=== PATIENT | male | born 1995 | race Caucasian/White ===

== ENCOUNTER 2018-11-01 03:36 | Emergency (ER) | payer OTHER, SELFPAY ==
[2018-11-01 03:37] VITALS: BP 146/66; PULSE 107; RESP 18; TEMP 37.3; O2SAT 99; BMI 26.8
--- NOTE | 2018-11-01 03:45 | CT_ITS ---
STUDY: CT ABDOMEN AND PELVIS WITH CONTRAST REASON FOR EXAM: Male, 23 years old. Left lower quadrant and back pain RADIATION DOSAGE (If Supplied By Facility): CTDIvol = ( 13.40 ) mGy, DLP = ( 903.87 ) mGycm TECHNIQUE: Transaxial images were obtained from the dome of the diaphragm to the symphysis pubis without oral contrast. 100ml IV Isovue 370 was administered. Sagittal and coronal images were reconstructed. Individualized dose optimization techniques were used for this CT. COMPARISON: None. FINDINGS: The visualized lung bases are unremarkable. The visualized portions of the heart are within normal limits. Normal liver. Normal gallbladder and extrahepatic biliary system. Normal spleen. Normal pancreas. Normal bilateral adrenal glands. Normal right kidney. Normal left kidney. Normal visualized stomach. Normal small intestine. Normal colon. The appendix is visualized and appears normal. Normal abdominal aorta. Normal inferior vena cava. Normal retroperitoneum. There are bilateral hydroceles. Evaluation of the scrotal sac and testes is nondiagnostic by CT. There is stranding and likely fluid within the left inguinal canal and superior to the left testis.. There is small amount of free fluid within the pelvis. Normal abdominal wall. Normal osseous structures. There is mild bladder wall thickening. CT/Abdomen/Pelvis W IV Cont ONLY IMPRESSION: Bilateral hydroceles, small amount of fluid and stranding superior to left testis this could represent patient's history of epididymitis. CT is nondiagnostic to evaluate the testes and scrotal sac. Scrotal Doppler ultrasound should be considered Small amount of fluid within the left inguinal canal with stranding which may be related history of inflammatory process, epididymitis. There is also small amount of free fluid in the pelvis which may represent patent small inguinal hernia with fluid contiguous from the pelvis to the scrotum. Free fluid in the pelvis is considered abnormal in a male, infectious or posttraumatic etiology including bowel injury cannot be excluded. This should be correlated with clinical history and physical exam. Mild bladder wall thickening which may be secondary to incomplete distention versus cystitis Electronically Signed: Aneudy Bee, at 5:35 EDT Tel , Service support ,
--- NOTE | 2018-11-01 03:46 | ED.DCSUM_ITS ---
History of Present Illness Chief Complaint: General Illness Informant: Patient Onset: Days Context: Gradual Onset Timing: Intermittent Current Severity: Moderate Maximum Severity: Moderate Narrative: The patient presents to the emergency department with fevers, chills, malaise, and abdominal pain. Patient states his been having intermittent pain testicle for a few months. He states that he saw his primary care on Friday. He was diagnosed with epididymitis and he was started on Bactrim. He states the pain is actually getting better. Has been taking it now for 5 days. He states that he is been having some nausea and some belching. Over the past 24 hours, he is had worsening pain mostly in his left lower quadrant. He is also admitting to chills and sweats. He said some mild back pain. He denies any weight loss. He denies any night sweats. Patient is otherwise healthy. He is on no other daily medications. Prior similar symptoms: No Recent Illness/Hospitalization: No Past Medical History - Allergies and Home Meds Allergies/Adverse Reactions: Allergies No Known Allergies Allergy (Verified 11/01/18 03:41) Primary Care Physician: Adrián Guerrero DO [Primary Care Provider] - Prior records reviewed: Yes Past Medical History: None Surgical History: no surgical history Smoking Status: Former smoker Review of Systems General: Reports: Chills, Fever. Denies: Sweats Eyes: Denies: Visual changes - bilaterally, Diplopia ENT: Denies: Rhinorrhea, Sore throat Cardiovascular: Denies: Chest pain, Palpitations Respiratory: Denies: Dyspnea, Cough, Dyspnea on exertion Gastrointestinal: Reports: Nausea, Vomiting. Denies: Abdominal pain, Diarrhea, Melena, Hematochezia Genitourinary: Reports: Dysuria. Denies: Hematuria, Frequency Musculoskeletal: Denies: Back pain, Extremity Pain Skin: Denies: Rash, Wounds Neurological: Denies: Headache, Weakness, Numbness Psych: Denies: Depression Endocrine: Denies: Polyuria Physical Exam Vital Signs/Narrative: Vital Signs Temp Pulse Resp BP Pulse Ox 11/01/18 03:37 99.2 F H 107 H 18 146/66 H 99 Inital Vital Signs reviewed: Yes General: Well nourished, Well developed, No Acute Distress Head: Normocephalic, Atraumatic Eyes: Perrl, EOMI ENT: Moist mucous membranes, No rhinorrhea Neck: Supple, Nontender Cardiovascular: Regular rate, Regular rhythm, No murmurs Respiratory: No distress, CTA bilaterally, Chest nontender Abdomen: Soft, Nontender, Nondistended, Normal bowel sounds Back: Nontender, Normal Inspection Extremities: Nontender, No edema Skin: Normal color, No rash Neurological: Alert, Oriented x3, Cranial nerves II-XII grossly intact, Normal Strength, Normal Sensation Psychological: Normal affect, Normal Mood Diagnostic/Tx/Re-eval Clinical Impression(s) from Imaging Studies Abdomen/Pelvis CT 11/01/18 03:45 IMPRESSION: Bilateral hydroceles, small amount of fluid and stranding superior to left testis this could represent patient's history of epididymitis. CT is nondiagnostic to evaluate the testes and scrotal sac. Scrotal Doppler ultrasound should be considered Small amount of fluid within the left inguinal canal with stranding which may be related history of inflammatory process, epididymitis. There is also small amount of free fluid in the pelvis which may represent patent small inguinal hernia with fluid contiguous from the pelvis to the scrotum. Free fluid in the pelvis is considered abnormal in a male, infectious or posttraumatic etiology including bowel injury cannot be excluded. This should be correlated with clinical history and physical exam. Mild bladder wall thickening which may be secondary to incomplete distention versus cystitis Electronically Signed: Aneudy Bee, at 5:35 EDT Tel , Service support , Abnormal Lab Results 11/01/18 11/01/18 11/01/18 03:50 03:50 04:00 WBC 6.0 RBC 5.59 Hgb 17.1 H Hct 48.0 MCV 85.9 MCH 30.6 MCHC 35.6 RDW Std Deviation 35.7 RDW Coeff of [place]al[place] 11.3 L Plt Count 131 L MPV 9.3 Immature Gran % (Auto) 0.200 Neut % (Auto) 72.9 H Lymph % (Auto) 12.8 L [place] % (Auto) 10.1 H Eos % (Auto) 3.5 Baso % (Auto) 0.5 Absolute Neuts (auto) 4.3 Absolute Lymphs (auto) 0.76 L Nucleated RBC % 0 Sodium 140 Potassium 3.6 Chloride 105 Carbon Dioxide 25.0 Anion Gap 10 BUN 10 Creatinine 1.19 Estim Creat Clear Calc 104.58 Est GFR (MDRD) Af Amer 99 Est GFR (MDRD) Non-Af 82 BUN/Creatinine Ratio 8.4 L Glucose 91 Calcium 8.8 Total Bilirubin 0.50 AST 15 ALT 20 Alkaline Phosphatase 64 Total Protein 7.8 Albumin 4.3 Globulin 3.5 Albumin/Globulin Ratio 1.2 Urine Color Yellow Urine Clarity Sl. Cloudy Urine pH 6.5 Ur Specific [place] 1.010 Urine Protein 15 H Urine Glucose (UA) Normal Urine Ketones 5 H Urine Occult Blood Negative Urine Nitrite Negative Urine Bilirubin Negative Urine Urobilinogen Normal Ur Leukocyte Esterase Negative Urine RBC 0 SEEN Urine WBC 0 SEEN Ur Squamous Epith Cells 0 SEEN Amorphous Sediment 1+ Urine Bacteria 0 SEEN Urine Mucus 0 SEEN - Medical Decision Making The patient presents to the emergency department with lower abdominal pain, chills, and sweats. His symptoms do see primarily infectious. He has normal cremasteric. He has mild tenderness over the left testicle, but it is not hard and it does not appear to have evidence of torsion. He has had this pain for about 6 days and has been feeling improved, but now he had pain in his lower abdomen. IV was established. Screening labs are obtained. Patient does not have a significant leukocytosis. Patient underwent CT which showed some reactive fluid in the lower pelvis that looks like it communicates with the scrotum. My suspicion is that this is likely epididymitis. The patient has been on Bactrim, but based on his age and risk factors, I do not know if this is significantly treating it. I am going to obtain an ultrasound to rule out dangerous process. I do feel that this shows the epididymitis and no evidence of torsion but I am going to change the patient's antibiotics to Cipro. He is comfortable with this plan of care. Ultrasound is currently pending. Impression 1. Left testicular pain 2. Epididymitis ED Disposition - Plan for ED Patient: Instructions: Epididymitis Prescriptions: Ciprofloxacin [Cipro] 500 mg PO BID #20 tab Prescription Printed Doxycycline 100 mg PO BID #20 cap Prescription Printed Referrals: Adrián Guerrero DO [Primary Care Provider] - Jared Coffman MD [STAFF PHYSICIAN] - Additional Instructions: Okay to stop the Bactrim
[2018-11-01] MEDS: Ketorolac 15 MG/ML Vial IV (04:03)
[2018-11-01] MEDS: 0.9% Normal Saline 1,000 ML 1000 ML IV (04:03)
[2018-11-01] MEDS: Ondansetron 4 MG/2 ML Vial IV (04:04)
[2018-11-01 04:05] LABS: Bacteria 0 SEEN /hpf (None Seen); Mucous, Urine 0 SEEN /hpf (<or=2+); Red Blood Cells-Urine 0 SEEN /hpf (0-5); Squamous Epithelial Cells - UA 0 SEEN /hpf (0-5); White Blood Cells 0 SEEN /hpf (0-5)
[2018-11-01 04:07] LABS: Color, Urine Yellow (Yellow); Glucose, Dipstick Normal (Normal); Ketone-Dipstick 5 mg/dl (Negative); Leukocyte Esterase-Dipstick Negative /ul (Negative); Nitrite-Dipstick Negative (Negative); Occult Blood-Urine Negative /ul (Negative); Protein-Dipstick 15 mg/dl (Negative); Urine Bilirubin Dipstick Negative (Negative); Urine Clarity Sl. Cloudy (Clear); Urine Urobilinogen Normal (Normal); Urine pH 6.5 (5.0 - 8.0)
[2018-11-01 04:14] LABS: ALB/GLOB Ratio 1.2 RATIO (0.9-2.4); AST(SGOT) 15 U/L (15-37); Absolute Lymphocyte Count 0.76 X10^3/uL (0.83-4.51); Absolute Neutrophil Count 4.3 X10^3/uL (2.0-7.7); Alanine Aminotransfer ALT/SGPT 20 U/L (16-61); Albumin, Serum 4.3 g/dL (3.2-5.0); Alkaline Phosphatase 64 U/L (45-117); Anion Gap 10 (5-15); BUN 10 mg/dL (7-18); BUN/Creat Ratio 8.4 RATIO (10-20); Basophil# 0.03 X10^3/uL; Basophil% 0.5 % (0-1); Calcium,Total 8.8 mg/dL (8.5-10.1); Chloride 105 mmol/L (98-107); Creatinine, Serum 1.19 mg/dL (0.70-1.30); EST Glomerular Filtration Rate 82 mL/min (>60); Eosinophil# 0.21 X10^3/uL; Eosinophils% 3.5 % (0-5); Est Glom Filt Rate - Afr Amer 99 mL/min (>60); Estimated Creatinine Clearance 104.58 ml/min; Globulin 3.5 g/dL (2.2-4.2); Glucose 91 mg/dL (74-106); Hemoglobin 17.1 g/dL (13.0-16.5); Lymphocyte # 0.76 X10^3/ul (4.0); Lymphocyte % 12.8 % (19-41); Mean Corp Hgb Conc 35.6 g/dL (32-36); Mean Corpuscular Hgb 30.6 pg (27.0-32.0); Mean Corpuscular Volume 85.9 fL (80-94); Mean Platelet Vol. 9.3 fl (6.2-12.0); Monocyte% 10.1 % (0-10); NRBC Flagged by Analyzer 0 % (0-5); Neutrophil # 4.34 X10^3/uL (2.7-7.7); Neutrophil % 72.9 % (47-70); Platelet Count 131 K/mm3 (150-450); Potassium 3.6 mmol/L (3.5-5.1); Protein, Total 7.8 g/dL (6.4-8.2); RBC Distribution Width CV 11.3 % (11.6-14.6); RBC Distribution Width SD 35.7 fl (35.1-43.9); Red Blood Count 5.59 M/mm3 (4.6-6.2); Sodium Level 140 mmol/L (136-145)
[2018-11-01 04:17] LABS: Amorphous Sediment 1+
--- NOTE | 2018-11-01 05:50 | US_ITS ---
STUDY: SCROTUM ULTRASOUND REASON FOR EXAM: Male, 23 years old. Left-sided testicular pain. TECHNIQUE: Ultrasound evaluation of the scrotum was performed with color Doppler and static mosley-scale imaging. COMPARISON: None. FINDINGS: RIGHT TESTICLE INTRATESTICULAR: There is a normal size of the right testicle. The right testicle measures 3.5 x 4.0 x 2.5 cm. There is a homogenous echotexture. There is normal arterial and normal venous vascularity. There is no demonstrated right testicular mass or cyst. EXTRATESTICULAR: The epididymis is normal in size. The epididymis head measures 5.3 x 6.4 x 11 mm. There is normal vascularity of the epididymis. There is no demonstrated epididymal cystic structure. There is no demonstrated hydrocele. There is no demonstrated varicocele. There is no demonstrated extratesticular mass or cyst. LEFT TESTICLE INTRATESTICULAR: There is a normal size of the left testicle. The left testicle measures 3.1 x 5.1 x 2.5 cm. There is a homogenous echotexture. There is normal arterial and normal venous vascularity. There is no demonstrated left testicular mass or cyst. EXTRATESTICULAR: The epididymis is normal in size. The epididymis head measures 2.1 x 0.9 x 1.5 cm. There is normal vascularity of the epididymis. There is a well-defined cystic structure within the epididymis, without internal echoes, consistent with an epididymal cyst. There is no demonstrated hydrocele. There is no demonstrated varicocele. There is no demonstrated extratesticular mass or cyst. US/Testicular with Arterial Flow IMPRESSION: Normal sonographic appearance of both testes. Electronically Signed: Uyen Mejia MD at 8:20 EDT , Service support ,
[2018-11-01 07:30] VITALS: BP 109/62; PULSE 60; RESP 15; O2SAT 99
[2018-11-01 09:14] VITALS: BP 110/67; PULSE 64; RESP 16; O2SAT 100
== END 2018-11-01 09:15 | disposition home or self-care (01) ==
LOC: ED 03:59
PROVIDERS: Emergency Provider Emergency Medicine; Family Provider Pediatrics; PCP Pediatrics
DX: N50.812 Left testicular pain (principal); N45.1 Epididymitis; N43.3 Hydrocele, unspecified; Z87.891 Personal history of nicotine dependence
CPT/HCPCS: 74177; 76870; 80053; 81001; 85025; 93976; 96361; 96374; 96375; 99283; Q9967; A4216; J2405

== ENCOUNTER 2018-11-22 21:04 | Emergency (ER) | payer OTHER, SELFPAY ==
[2018-11-22 21:05] VITALS: BP 133/81; PULSE 118; RESP 16; TEMP 36.6; O2SAT 99; BMI 26.2
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
[2018-11-22] MEDS: HYDROcodone Bitartrate/Apap 5/325 Tablet PO (21:24)
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
[2018-11-22] MEDS: Smz/Tmp Ds Tablet 1 TABLET PO (22:59)
[2018-11-22] MEDS: Cephalexin 250 MG Capsule 500 MG PO (22:59)
== END 2018-11-22 23:03 | disposition home or self-care (01) ==
PROVIDERS: Emergency Provider Emergency Medicine; Family Provider Pediatrics; PCP Pediatrics
DX: M79.5 Residual foreign body in soft tissue (principal); W34.00XA Accidental discharge from unspecified firearms or gun, initial encounter; F17.200 Nicotine dependence, unspecified, uncomplicated
CPT/HCPCS: 73130; 99284

== ENCOUNTER 2018-11-23 01:46 | Emergency (ER) | payer OTHER, SELFPAY ==
[2018-11-22 21:05] VITALS: BMI 26.2
[2018-11-23 01:47] VITALS: BP 137/115; PULSE 90; RESP 16; TEMP 37.3; O2SAT 100; BMI 25.7
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
[2018-11-23] MEDS: predniSONE 20 MG Tablet 60 MG PO (02:04)
[2018-11-23] MEDS: Famotidine 20 MG Tablet PO (02:04)
[2018-11-23] MEDS: Ondansetron ODT 4 MG Tablet 8 MG PO (03:04)
--- NOTE | 2018-11-23 03:04 | ED.RN ---
CALLED INTO ROOM, PT VOMITING IN TRASH CAN. ORDER OBTAINED FROM DR. MENDOZA FOR ZOFRAN WHICH WAS GIVEN. DR. MENDOZA AT BEDSIDE TO REEVALUATE PT.
[2018-11-23 03:27] VITALS: BP 126/58; PULSE 104; RESP 16; O2SAT 99
== END 2018-11-23 03:31 | disposition home or self-care (01) ==
PROVIDERS: Emergency Provider Emergency Medicine; Family Provider Pediatrics; PCP Pediatrics
DX: T78.40XA Allergy, unspecified, initial encounter (principal); T78.49XA Other allergy, initial encounter; T36.1X5A Adverse effect of cephalosporins and other beta-lactam antibiotics, initial encounter; T36.8X5A Adverse effect of other systemic antibiotics, initial encounter; Y92.9 Unspecified place or not applicable; F17.200 Nicotine dependence, unspecified, uncomplicated
CPT/HCPCS: 99283

== ENCOUNTER 2019-10-25 12:05 | Emergency (ER) | payer OTHER, SELFPAY ==
[2019-10-25 12:06] VITALS: BP 138/108; PULSE 87; RESP 18; TEMP 36.6; O2SAT 98; BMI 25.8
--- NOTE | 2019-10-25 12:40 | CT_ITS ---
STUDY: CT ABDOMEN AND PELVIS WITHOUT CONTRAST REASON FOR EXAM: Male, 24 years old. LLQ PAIN X 5 DAYS AND DIARRHEA. No surgical or medical hx RADIATION DOSAGE (If Supplied By Facility): CTDIvol = ( 13.29 ) mGy, DLP = ( 465.75 ) mGycm TECHNIQUE: Transaxial images were obtained from the dome of the diaphragm to the symphysis pubis without oral contrast, and without intravenous contrast. Sagittal and coronal images were reconstructed. Individualized dose optimization techniques were used for this CT. COMPARISON: Comparison is made with prior study dated 11/01/2018. FINDINGS: The visualized lung bases are unremarkable. The visualized portions of the heart are within normal limits. There is evidence of a periportal edematous changes within the liver. There is a small amount of perihepatic fluid. Hepatitis should be ruled out. Normal gallbladder and extrahepatic biliary system. Normal spleen. Normal pancreas. Normal bilateral adrenal glands. Normal right kidney. Normal left kidney. There is a small hiatal hernia. Normal small intestine. Normal colon. The appendix is visualized and appears normal. Normal abdominal aorta. Normal inferior vena cava. Normal retroperitoneum. Mild degree of diffuse bladder wall thickening. Small left hydrocele. Small amount of free fluid is seen in the pelvis. Normal abdominal wall. Normal osseous structures. CT/Abdomen/Pelvis W IV Cont ONLY IMPRESSION: There is evidence of periportal edema in the liver with a small amount of free fluid seen in the pelvis. Small amount of perihepatic fluid. Mild degree of diffuse bladder wall thickening. Electronically Signed: Hang Brown, at 14:19 EDT , Service support ,
--- NOTE | 2019-10-25 12:41 | ED.DCSUM_ITS ---
History of Present Illness Chief Complaint: Abd Pain Informant: Patient, Family - Abdominal Pain/Flank Pain Onset: Days - 5 Context: Gradual Onset - about 10 min after eating breakfast Timing: Continuous Quality: Aching - and bloating/swelling in left abd Location: - - left abd Current Severity: Moderate Maximum Severity: Moderate Worsened by: Nothing Relieved by: - - belching, passing flatus - Nausea/Vomiting/Emesis GI Symptom: Nausea. Negative for: Vomiting - Diarrhea/Melena/Hematochezia GI Symptom: Negative for: Diarrhea, Melena, Hematochezia Associated Symptoms: Negative for: Dysuria, Frequency, Hematuria, Urgency Narrative: Patient states he generally eats the same thing every morning that does not bother him, however on the day of the onset of this, he also had a banana which is caused similar symptoms in the past. He thought he would try it again, but it caused left-sided abdominal pain and swelling. The symptoms have persisted f or multiple days, and 1-2 days ago he developed testicular pain worse on the left. He was evaluated by Dr. Smith with surgery [facility] in the past and told that he may have an indirect left inguinal hernia. He has never developed a bulge/mass, but was told that if he developed any issues to come back for reevaluation. He has developed no bulge or mass in this past week either. Denies any history of or risk of gonorrhea or chlamydia, but states he has had epididymitis once in the past. Past Medical History - Allergies and Home Meds Allergies/Adverse Reactions: Allergies cephalexin Allergy (Verified 10/25/19 12:06) Swelling ciprofloxacin Allergy (Verified 10/25/19 12:06) Rash doxycycline Allergy (Verified 10/25/19 12:06) Rash sulfamethoxazole [From Bactrim] Allergy (Verified 10/25/19 12:06) Swelling trimethoprim [From Bactrim] Allergy (Verified 10/25/19 12:06) Swelling Primary Care Physician: Rommel Acosta MD [Primary Care Provider] - Past Medical History: None Surgical History: no surgical history Lives: With Family Smoking Status: Current every day smoker Review of Systems General: Denies: Chills, Fever, Sweats Eyes: Denies: Visual changes - bilaterally, Diplopia ENT: Denies: Rhinorrhea, Sore throat Cardiovascular: Denies: Chest pain, Palpitations Respiratory: Denies: Dyspnea, Cough, Dyspnea on exertion Gastrointestinal: Reports: Abdominal pain, Nausea. Denies: Vomiting, Diarrhea, Melena, Hematochezia Genitourinary: Reports: - - Testicular pain. Denies: Dysuria, Hematuria, Frequency Musculoskeletal: Denies: Back pain, Swelling, Extremity Pain Skin: Denies: Rash, Wounds Neurological: Denies: Headache, Weakness, Numbness Physical Exam Vital Signs/Narrative: Vital Signs Temp Pulse Resp BP Pulse Ox 10/25/19 12:06 98 F 87 18 138/108 H 98 Inital Vital Signs reviewed: Yes General: Well nourished, Well developed, No Acute Distress Head: Normocephalic, Atraumatic Eyes: Perrl, EOMI ENT: Moist mucous membranes, No rhinorrhea Neck: Supple, Nontender Cardiovascular: Regular rate, Regular rhythm, No murmurs. Negative for: Tachycardia Respiratory: No distress, CTA bilaterally, Chest nontender Abdomen: Soft, Nondistended - No objective swelling noted., Normal bowel sounds, No masses, Tender - Left lower quadrant with voluntary guarding. Left upper quadrant without. Otherwise nontender.. Negative for: Rebound tenderness : - - Cremasterics intact bilaterally. Both epididymis tender, worse on the left, no testicle tenderness proper. No blue dot sign. No scrotal mass palpable. Skin and scrotum and penis normal. Patient examined while standing, no mass/hernia palpable bilateral inguinal. Back: Nontender, Normal Inspection. Negative for: CVA tenderness Extremities: Nontender, No edema Skin: Normal color, No rash, No Trauma Neurological: Alert, Oriented x3, Cranial nerves II-XII grossly intact, Normal Strength, Normal Sensation, Normal Gait Psychological: Normal affect, Normal Mood Diagnostic/Tx/Re-eval Impressions Abdomen/Pelvis CT 10/25/19 12:40 IMPRESSION: There is evidence of periportal edema in the liver with a small amount of free fluid seen in the pelvis. Small amount of perihepatic fluid. Mild degree of diffuse bladder wall thickening. Electronically Signed: Hang Brown, at 14:19 EDT , Service support , 10/25/19 12:40 Abdomen/Pelvis W IV Cont ONLY [CT] Stat Laboratory Results 10/25/19 10/25/19 10/25/19 13:00 13:00 13:00 WBC 7.3 RBC 5.11 Hgb 15.8 Hct 45.9 MCV 89.8 MCH 30.9 MCHC 34.4 RDW Std Deviation 37.7 RDW Coeff of Rosalinda 11.6 Plt Count 169 MPV 9.5 Immature Gran % (Auto) 0.300 Neut % (Auto) 57.6 Lymph % (Auto) 31.6 [place] % (Auto) 6.0 Eos % (Auto) 4.0 Baso % (Auto) 0.5 Absolute Neuts (auto) 4.2 Absolute Lymphs (auto) 2.30 Nucleated RBC % 0 Sodium 139 Potassium 4.0 Chloride 109 H Carbon Dioxide 27.0 Anion Gap 3 L BUN 11 Creatinine 0.96 Estim Creat Clear Calc 124.62 Est GFR (MDRD) Af Amer 126 Est GFR (MDRD) Non-Af 104 BUN/Creatinine Ratio 11.4 Glucose 89 Calcium 8.8 Total Bilirubin 0.40 AST 13 L ALT 20 Alkaline Phosphatase 69 Total Protein 7.3 Albumin 4.1 Globulin 3.2 Albumin/Globulin Ratio 1.3 Lipase 217 Urine Color Yellow Urine Clarity Clear Urine pH 7.0 Ur Specific [place] 1.010 Urine Protein Negative Urine Glucose (UA) Normal Urine Ketones Negative Urine Occult Blood Negative Urine Nitrite Negative Urine Bilirubin Negative Urine Urobilinogen Normal Ur Leukocyte Esterase Negative Urine RBC 0 SEEN Urine WBC 0 SEEN Ur Squamous Epith Cells 0 SEEN Urine Bacteria 0 SEEN Urine Mucus 0 SEEN - Medical Decision Making Patient's abdominal pain is much improved after Toradol, Bentyl, simethicone. I suspect this is functional abdominal pain, it may have been caused by the banana that he ate for unknown reasons. The CT results do not indicate the reason for his pain, and was primarily obtained to rule out diverticulitis given his intense left lower quadrant tenderness, which he does not show. It shows nonspecific periportal edema and a mild amount of free fluid, this may be due to intestinal inflammatory problem that is more likely to be causing his pain. His liver enzymes are all normal. His urinalysis is normal, but I am going to place him on 7 days of cephalexin (see below) for probable epididymitis, and also Bentyl to use as needed. I recommend close outpatient follow-up with his PCP and they are comfortable with that plan. The patient indicates that avocados have caused this issue in the past as well. I am not sure the next type of test that would indicate the problem that this patient is having in response to these foods. The patient happens to be allergic to every antibiotic that we used to treat epididymitis on an outpatient basis. However on further discussion with the patient and family and exploration of his chart, it seems that he does not have any true allergies to cephalexin that has been proven. He actually saw an italian tutor and had testing, and was told if he needed to be placed on antibiotics, that the cephalosporin family would be safe as would penicillins. I am less suspicious of gonorrhea or chlamydia as the patient's cause of epididymitis, and I am trying to cover E. coli. It appears that during his last ER visit last year, he was on both Bactrim and cephalexin when he developed an allergic reaction, so I think both of these antibiotics were probably placed into the system, as the patient was unaware of being allergic to cephalexin. I think as the ED physician did last year, that the Bactrim was more likely the cause of that reaction, and he is amenable to trying cephalexin. If he develops an allergic reaction, he understands to discontinue it and return to the ER if needed. ED Disposition - Plan for ED Patient: Disposition: Home or Assisted Living Diagnosis: Epididymitis, Diffuse abdominal pain Instructions: ED Epididymitis, ED Unknown Causes of Abdominal Pain Male Prescriptions: Dicyclomine HCl [Bentyl] 20 mg PO Q6H PRN #20 capsule PRN Reason: abdominal pain Cephalexin [Keflex] 500 mg PO TID 7 Days #21 capsule Referrals: Rommel Acosta MD [Primary Care Provider] - 1-2 Weeks Additional Instructions: Also may use simethicone 80 mg every 6-8 hours as needed for abdominal bloating/discomfort.
[2019-10-25] MEDS: 0.9% Normal Saline 1,000 ML 1000 ML IV (13:02)
[2019-10-25] MEDS: Ondansetron 4 MG/2 ML Vial IV (13:02)
[2019-10-25] MEDS: Ketorolac 30 MG/ML Syringe IV (13:03)
[2019-10-25] MEDS: Dicyclomine 10 MG Capsule 20 MG PO (13:03)
[2019-10-25 13:19] LABS: Bacteria 0 SEEN /hpf (None Seen); Mucous, Urine 0 SEEN /hpf (<or=2+); Red Blood Cells-Urine 0 SEEN /hpf (0-5); Squamous Epithelial Cells - UA 0 SEEN /hpf (0-5); White Blood Cells 0 SEEN /hpf (0-5)
[2019-10-25 13:21] LABS: Color, Urine Yellow (Yellow); Glucose, Dipstick Normal (Normal); Ketone-Dipstick Negative (Negative); Leukocyte Esterase-Dipstick Negative /ul (Negative); Nitrite-Dipstick Negative (Negative); Occult Blood-Urine Negative /ul (Negative); Protein-Dipstick Negative (Negative); Urine Bilirubin Dipstick Negative (Negative); Urine Clarity Clear (Clear); Urine Urobilinogen Normal (Normal)
[2019-10-25 13:46] LABS: ALB/GLOB Ratio 1.3 RATIO (0.9-2.4); AST(SGOT) 13 U/L (15-37); Alanine Aminotransfer ALT/SGPT 20 U/L (16-61); Albumin, Serum 4.1 g/dL (3.2-5.0); Alkaline Phosphatase 69 U/L (45-117); Anion Gap 3 (5-15); BUN 11 mg/dL (7-18); BUN/Creat Ratio 11.4 RATIO (10-20); Calcium,Total 8.8 mg/dL (8.5-10.1); Chloride 109 mmol/L (98-107); Creatinine, Serum 0.96 mg/dL (0.70-1.30); EST Glomerular Filtration Rate 104 mL/min (>60); Est Glom Filt Rate - Afr Amer 126 mL/min (>60); Estimated Creatinine Clearance 124.62 ml/min; Globulin 3.2 g/dL (2.2-4.2); Glucose 89 mg/dL (74-106); Lipase 217 U/L (73-393); Protein, Total 7.3 g/dL (6.4-8.2); Sodium Level 139 mmol/L (136-145)
[2019-10-25 14:14] LABS: Absolute Neutrophil Count 4.2 X10^3/uL (2.0-7.7); Basophil# 0.04 X10^3/uL; Basophil% 0.5 % (0-1); Eosinophil# 0.29 X10^3/uL; Hematocrit 45.9 % (40-54); Hemoglobin 15.8 g/dL (13.0-16.5); Lymphocyte % 31.6 % (19-41); Mean Corp Hgb Conc 34.4 g/dL (32-36); Mean Corpuscular Hgb 30.9 pg (27.0-32.0); Mean Corpuscular Volume 89.8 fL (80-94); Mean Platelet Vol. 9.5 fl (6.2-12.0); Monocyte# 0.44 X10^3/uL; NRBC Flagged by Analyzer 0 % (0-5); Neutrophil % 57.6 % (47-70); Platelet Count 169 K/mm3 (150-450); RBC Distribution Width CV 11.6 % (11.6-14.6); RBC Distribution Width SD 37.7 fl (35.1-43.9); Red Blood Count 5.11 M/mm3 (4.6-6.2); White Blood Count 7.3 K/mm3 (4.4-11.0)
[2019-10-25 15:25] VITALS: BP 108/56; PULSE 55; RESP 16; O2SAT 98
== END 2019-10-25 16:27 | disposition home or self-care (01) ==
PROVIDERS: Emergency Provider Emergency Medicine; PCP Family Medicine
DX: N45.1 Epididymitis (principal); F17.200 Nicotine dependence, unspecified, uncomplicated; Z88.1 Allergy status to other antibiotic agents; Z88.2 Allergy status to sulfonamides
CPT/HCPCS: 74177; 80053; 81001; 83690; 85025; 96361; 96374; 99284; J7030; Q9967; A4216; J2405

== ENCOUNTER 2020-06-29 09:07 | Outpatient (RCR) | payer OTHER, SELFPAY | END 2020-08-08 23:59 | LOC: IMMUN 09:07 | PROVIDERS: PCP Family Medicine; Referring Provider Family Medicine; Visit Provider Family Medicine | DX: Z23 Encounter for immunization (principal) | CPT/HCPCS: 0001A; 0002A; 91300 ==

== ENCOUNTER 2022-04-29 20:15 | Emergency (ER) | payer BC, SELFPAY ==
[2022-04-29 20:16] VITALS: BP 139/80; PULSE 89; RESP 15; TEMP 36.8; O2SAT 95; BMI 27.0
[2022-04-29 20:35] LABS: Absolute Lymphocyte Count 3.29 X10^3/uL (0.83-4.51); Absolute Neutrophil Count 7.1 X10^3/uL (2.0-7.7); Basophil# 0.13 X10^3/uL; Basophil% 0.8 % (0-1); Eosinophils% 31.1 % (0-5); Hematocrit 48.1 % (40-54); Hemoglobin 17.1 g/dL (13.0-16.5); Lymphocyte # 3.29 X10^3/ul (0.83-4.51); Lymphocyte % 20.2 % (19-41); Mean Corp Hgb Conc 35.6 g/dL (32-36); Mean Corpuscular Hgb 30.9 pg (27.0-32.0); Mean Corpuscular Volume 86.8 fL (80-94); Monocyte% 4.3 % (0-10); NRBC Flagged by Analyzer 0 % (0-5); Neutrophil # 7.07 X10^3/uL (2.7-7.7); Neutrophil % 43.3 % (47-70); POSITIVE DIFFERENTIAL YES; Platelet Count 183 K/mm3 (150-450); RBC Distribution Width CV 11.4 % (11.6-14.6); RBC Distribution Width SD 36.4 fl (35.1-43.9); Red Blood Count 5.54 M/mm3 (4.6-6.2); White Blood Count 16.3 K/mm3 (4.4-11.0)
[2022-04-29 20:46] LABS: Differential Indicated SCAN CRITERIA MET; Eosinophil# 5.07 X10^3/uL
[2022-04-29 20:47] LABS: Anion Gap 7 (5-15); BUN 10 mg/dL (7-18); BUN/Creat Ratio 10.5 RATIO (10-20); Calcium,Total 9.4 mg/dL (8.5-10.1); Chloride 106 mmol/L (98-107); Creatinine, Serum 0.95 mg/dL (0.70-1.30); EST Glomerular Filtration Rate 103 mL/min (>60); Est Glom Filt Rate - Afr Amer 124 mL/min (>60); Glucose 103 mg/dL (74-106); Potassium 3.7 mmol/L (3.5-5.1); Sodium Level 139 mmol/L (136-145)
[2022-04-29 21:04] LABS: Bacteria 0 SEEN /hpf (None Seen); Red Blood Cells-Urine 0 SEEN /hpf (0-5); Squamous Epithelial Cells - UA 0 SEEN /hpf (0-5); White Blood Cells 0 SEEN /hpf (0-5)
--- NOTE | 2022-04-29 21:10 | ED.VIS.GI ---
HPI HPI - GI History of Present Illness Chief Complaint: Abd Pain Detail of Chief Complaint: Abdominal pain with nausea, vomiting and diarrhea that started 10 days ago Informant: patient Abdominal Pain/Flank Pain Onset: Days Context: Sudden Onset Timing: Intermittent Quality: Aching Location: Diffuse Current Severity: Gone Maximum Severity: Moderate Worsened by: - (Vomiting and diarrhea) Relieved by: Nothing Nausea/Vomiting/Emesis GI Symptom: Positive for Nausea and Vomiting (3-4 times per day. Last emesis was April 26) Onset: Days Quality: Negative for Nonbilious, Blood streaks, Coffee ground or Hematemesis Diarrhea/Melena/Hematochezia GI Symptom: Positive for Diarrhea (Noted blood with last loose watery stool); Negative for Melena or Hematochezia Onset: Days Stool Quality: Positive for Loose and Watery Severity: Moderate Associated Symptoms Associated Symptoms: Negative for Dysuria, Frequency, Hematuria or Urgency Narrative Narrative: Patient is a healthy 26-year-old male with no significant past medical history who presents with nausea, vomiting and diarrhea that started 10 days ago. Last episode of emesis April 26. Patient had diarrhea 15 minutes for entered the room. He states he noted blood. He has no known history of inflammatory bowel disorder. He did not have anything to eat that tasted unusual. He denies fever, chills night sweats. He denies thirst or dry mouth. He denies orthostatic symptoms. He states he feels weak. He denies cardiac or respiratory symptoms. He denies urologic symptoms. He denies myalgias or arthralgias. He denies rash. Prior similar symptoms: Yes Recent Illness/Hospitalization: No PFSH PFSH Medical History no medical history no medical history Home Medications cephalexin 500 mg capsule 500 mg PO Q6 #40 caps 11/22/18 [Rx Last Taken Unknown] cetirizine 5 mg-pseudoephedrine ER 120 mg tablet,extended release,12hr 1 ea PO DAILY 11/22/18 [History Last Taken Unknown] sulfamethoxazole 800 mg-trimethoprim 160 mg tablet 1 tab PO BID #6 tabs 11/22/18 [Rx Last Taken Unknown] ondansetron 4 mg disintegrating tablet 4 mg PO Q8H PRN PRN Nausea #10 tabs 11/23/18 [Rx Last Taken Unknown] prednisone 20 mg tablet 60 mg PO DAILY #12 tabs 11/23/18 [Rx Last Taken Unknown] dicyclomine 10 mg capsule 20 mg PO Q6H PRN abdominal pain #20 caps 10/25/19 [Rx Last Taken Unknown] Allergy/AdvReac Type Severity Reaction Status Date / Time cephalexin Allergy Swelling Verified 04/29/22 20:21 ciprofloxacin Allergy Rash Verified 04/29/22 20:21 doxycycline Allergy Rash Verified 04/29/22 20:21 sulfamethoxazole Allergy Swelling Verified 04/29/22 20:21 [From Bactrim] trimethoprim [From Bactrim] Allergy Swelling Verified 04/29/22 20:21 Surgical History no surgical history no surgical history Social History (Updated 04/29/22 @ 21:[address] Giovanny Gonsalez MD) Smoking Status: Never smoker substance use type: does not use ROS ROS ED Constitutional Constitutional ED: Reports weight loss; Denies chills, fever(s), subjective or sweats ENT ENT ED: Denies ear pain, rhinorrhea or sore throat Cardiovascular Cardiovascular: Denies chest pain or palpitations Respiratory/Chest Respiratory/Chest: Denies cough, dyspnea or dyspnea on exertion Gastrointestinal Gastrointestinal: Reports abdominal pain, diarrhea, nausea and vomiting; Denies constipation or melena Genitourinary Genitourinary ED: Denies dysuria, hematuria or urinary frequency Musculoskeletal Musculoskeletal: Denies arthralgias, back pain, myalgias or neck pain Integumentary Denies Abrasions Neurologic Neurologic: Reports weakness; Denies headache(s) or paresthesias Endocrine Endocrinology: Denies polydipsia, polyphagia or polyuria Hematologic/Lymphatic Hematologic/Lymphatic: Denies easy bleeding or easy bruising EXAM Physical Exam Const Vital Signs: 04/29/22 20:16 Temperature 98.3 F Temperature Source Temporal Pulse Rate 89 Respiratory Rate 15 Blood Pressure 139/80 H Blood Pressure Mean 99 Pulse Ox 95 Oxygen Delivery Method Room Air Positive well nourished and well developed General Appearance ED: well developed and NAD; Negative for pallor HEENT Reports TM's clear and dry mucous membranes normocephalic and atraumatic Tympanic Membrane ED: Yes TM's clear Mouth ED: Yes dry mucous membranes Mouth: dry mucous membranes Eyes PERRL and EOMs intact bilaterally General Eye ED: Negative for pale conjunctiva or scleral icterus Neck no lymphadenopathy and supple Resp normal respiratory effort Cardio regular rate, regular rhythm, S1 normal heart sound, S2 normal heart sound and no murmurs GI non-tender, non-distended and no masses Auscultation: hyperactive bowel sounds Palpation: soft Back/Spine no CVA tenderness Extremity full ROM General Extremety ED: Negative for edema or tenderness General Extremity: Negative for edema Neuro CN's II-XII intact bilaterally, moves all extremities and no sensory deficits noted Sensorium / Orientation: alert Psych mental status grossly normal and thought process normal Skin no wounds General Skin Exam: Negative for jaundice or pallor MDM MDM MDM Narrative Medical decision making narrative: Since patient's had diarrhea for 10 days will obtain stool for enteric pathogens. Clinically he appears dehydrated. 1 L of normal saline was ordered. Nurse protocol was initiated. White count is elevated 16.3 thousand with 31% eosinophils. With 31% eosinophils need to entertain possibility of parasites. We will have stool sent for O&P since he has 31% eosinophils. He will not receive Imodium for his diarrhea. Patient did give nurse sample of watery diarrhea. Present to the lab. Lab Data Attestation: I reviewed the patient's lab results. Lab results narrative: Since patient's had diarrhea for 10 days will obtain stool for enteric pathogens. Clinically he appears dehydrated. 1 L of normal saline was ordered. Nurse protocol was initiated. White count is elevated 16.3 thousand with 31% eosinophils. With 31% eosinophils need to entertain possibility of parasites. Basic metabolic panel is normal. UA is unremarkable. Split gravity is not elevated. There is no ketones noted. Labs: Laboratory Results - last 24 hr 04/29/22 04/29/22 04/29/22 20:30 20:30 20:51 WBC 16.3 H RBC 5.54 Hgb 17.1 H Hct 48.1 MCV 86.8 MCH 30.9 MCHC 35.6 RDW Std Deviation 36.4 RDW Coeff of Rosalinda 11.4 L Plt Count 183 MPV 9.0 Immature Gran % (Auto) 0.300 Neut % (Auto) 43.3 L Lymph % (Auto) 20.2 [place] % (Auto) 4.3 Eos % (Auto) 31.1 H Baso % (Auto) 0.8 Absolute Neuts (auto) 7.1 Absolute Lymphs (auto) 3.29 Nucleated RBC % 0 Differential Comment SCANNED Diff Path Review May foll Sodium 139 Potassium 3.7 Chloride 106 Carbon Dioxide 26.0 Anion Gap 7 BUN 10 Creatinine 0.95 Estim Creat Clear Calc 123.80 Est GFR (MDRD) Af Amer 124 Est GFR (MDRD) Non-Af 103 BUN/Creatinine Ratio 10.5 Glucose 103 Calcium 9.4 Urine Color Yellow Urine Clarity Clear Urine pH 6.5 Ur Specific [place] 1.015 Urine Protein Negative Urine Glucose (UA) Normal Urine Ketones Negative Urine Occult Blood Negative Urine Nitrite Negative Urine Bilirubin Negative Urine Urobilinogen Normal Ur Leukocyte Esterase Negative Urine RBC 0 SEEN Urine WBC 0 SEEN Ur Squamous Epith Cells 0 SEEN Urine Bacteria 0 SEEN Urine Mucus RARE Treatment and Re-Evaluation Narrative: Patient was reassessed at 2240. Patient states he feels better after the IV fluids. He has urinated twice. Patient was informed that the stool results may take an hour or 2. Case will be turned over to the evening physician Dr. Gustabo Maher. If stool for enteric pathogen is positive will require antibiotics. Patient was informed that the stool for ova and parasites may not result tonight. If the test is positive, he was informed he will be contacted and started on appropriate medication if indicated. Because he had diarrhea for 10 days and has significant eosinophilia he was referred to Dr. Martino. Contacted the lab regarding timing of results. sound effects technician informed that results will not be available this evening. Since patient is feeling better will discharge to home with outpatient follow-up with Dr. Martino. Discharge Plan Triage Chief Complaint: Abd Pain ED Provider: Giovanny Gonsalez Dx/Rx/DC Orders Clinical Impression: Nausea, vomiting and diarrhea, Eosinophilia, Mild dehydration, Leukocytosis Instructions: ED Vomiting and Diarrhea ... Prescriptions: No Action cetirizine-pseudoephedrine 1 EACH tablet extended release 12 hr 1 ea PO DAILY sulfamethoxazole-trimethoprim 1 TABLET tablet 1 tab PO BID Qty: 6 0RF cephalexin 500 MG capsule 500 mg PO Q6 Qty: 40 0RF prednisone 20 MG tablet 60 mg PO DAILY Qty: 12 0RF ondansetron 4 MG tablet 4 mg PO Q8H PRN PRN (Reason: Nausea) Qty: 10 0RF dicyclomine 10 MG capsule 20 mg PO Q6H PRN (Reason: abdominal pain) Qty: 20 0RF Primary Care Provider: Lico Munoz Referrals: Elmer Martino DO [Med Staff - Active Staff] - 3-5 Days Lico Munoz MD [Primary Care Provider] - Disposition Disposition: Home, Self Care
[2022-04-29 21:12] LABS: Color, Urine Yellow (Yellow); Glucose, Dipstick Normal (Normal); Ketone-Dipstick Negative (Negative); Leukocyte Esterase-Dipstick Negative /ul (Negative); Nitrite-Dipstick Negative (Negative); Occult Blood-Urine Negative /ul (Negative); Protein-Dipstick Negative (Negative); Specific Gravity, Urine 1.015 (1.002-1.030); Urine Bilirubin Dipstick Negative (Negative); Urine Clarity Clear (Clear); Urine Urobilinogen Normal (Normal); Urine pH 6.5 (5.0 - 8.0)
[2022-04-29 21:16] LABS: Differential Comment SCANNED
[2022-04-29 21:20] LABS: Mucous, Urine RARE /hpf (<or=2+)
[2022-04-29] MEDS: 0.9% Normal Saline 1,000 ML 1000 ML IV (21:26)
[2022-04-29 22:57] VITALS: O2SAT 99
[2022-04-30 13:14] LABS: Pathologist Review Reviewed
== END 2022-04-29 23:03 | disposition home or self-care (01) ==
PROVIDERS: Emergency Provider Emergency Medicine; PCP Family Medicine; Visit Provider Emergency Medicine
DX: R11.2 Nausea with vomiting, unspecified (principal); R10.9 Unspecified abdominal pain; D72.10 Eosinophilia, unspecified; E86.0 Dehydration; R19.7 Diarrhea, unspecified
CPT/HCPCS: 80048; 81001; 85025; 87177; 87209; 87329; 87506; 99282; J7030